=== PATIENT | female | born 1975 | race Caucasian/White ===

== ENCOUNTER 2021-10-15 16:48 | Emergency (ER) | payer BC ==
[2021-10-15] MEDS ORDERED: Acetaminophen/Codeine 30-300mg Tablet ONE (17:07)
[2021-10-15] MEDS ORDERED: Boostrix 0.5 ML (Tdap) VIAL ONE (17:13)
[2021-10-15] MEDS ORDERED: Lidocaine 1% (PF) 30 ML VIAL ONE (17:13)
[2021-10-15] MEDS ORDERED: Bacitracin 1 PK ONE (17:20)
[2021-10-15] MEDS ORDERED: Lidocaine 1%/Epinephrine 1:100K 10 ML VIAL ONE (18:32)
[2021-10-15] MEDS ORDERED: Ibuprofen 800 MG TAB ONE (19:44)
== END 2021-10-15 19:46 | disposition home or self-care (01) ==
LOC: MADERS 16:48
DX: S01.81XA Laceration without foreign body of other part of head, initial encounter (principal); S01.21XA Laceration without foreign body of nose, initial encounter; W01.0XXA Fall on same level from slipping, tripping and stumbling without subsequent striking against object, initial encounter
CPT/HCPCS: 12014; 70450; 70486; 90471; 90715; J2001